=== PATIENT | male | born 1955 | race Caucasian/White ===

== ENCOUNTER → 2020-07-09 | Outpatient (CLI) | payer SELFPAY ==
[~2020-07-09] MED LIST: BARIUM SUSPENSION 2.1% (VANILLA SILQ) 450 ML PO ONE; CATHETER FLUSH 10 ML SYR IV PRN; HOLD METFORMIN - RECEIVED CONTRAST 20 ML VIAL IV SCH; IOHEXOL 350 MG/ML 100 ML (OMNIPAQUE 350) VIAL IV ONE; NS 100 ML (IVPB) BAG IV ONE
[2020-07-09 11:36] LABS: BUN/CREATININE RATIO 8; CREATININE SERUM 0.83 MG/DL (0.60-1.30); GFR ESTIMATED > 60
--- NOTE | 2020-07-09 12:25 | Diagnostic Imaging Report ---
PROCEDURE: CT abdomen and pelvis with contrast. TECHNIQUE: Multiple contiguous axial images were obtained through the abdomen and pelvis after administration of intravenous contrast. Auto Exposure Controls were utilized during the CT exam to meet ALARA standards for radiation dose reduction. All CT scans use one or more of the following dose optimizing techniques: automated exposure control, MA and/or KvP adjustment based on patient size and exam type or iterative reconstruction. INDICATION: Prostate carcinoma. No prior CT studies are available for comparison. FINDINGS: The lung bases are clear. No discrete liver mass is identified. There are small stones within the gallbladder. No biliary duct dilatation is seen. Pancreas and spleen are unremarkable. No adrenal mass is detected. Kidneys are unremarkable. Aorta is nonaneurysmal. Moderate atherosclerotic plaque throughout the aorta and iliac vessels is seen. No central retroperitoneal or mesenteric lymphadenopathy is identified. There is moderate amount of stool in the rectum and portions of the sigmoid colon and right colon. Small bowel is nondilated. No free fluid or fluid collection is identified. No definite iliac or inguinal lymphadenopathy is seen. Prostate appears to be surgically absent. Bladder is unremarkable. The bony structures are unremarkable. IMPRESSION: 1. Cholelithiasis. 2. Status post prostatectomy. No abdominal or pelvic lymphadenopathy or evidence of metastatic disease is identified. Dictated by: Dictated on workstation # [id number]
--- NOTE | 2020-07-09 14:09 | Diagnostic Imaging Report ---
INDICATION: Prostate carcinoma with increasing PSA levels. Patient was a administered 26.0 mCi technetium 99m MDP intravenously and whole-body imaging was performed after 3 hour delay. No prior bone scans are available for comparison. There is normal uptake of activity by the axial and appendicular skeleton. There is uptake by both kidneys with excretion into the urinary bladder. No suspicious foci are seen to suggest osseous metastatic disease. There is a focus in the right maxilla which could be odontogenic. IMPRESSION: No sonographic evidence of osseous metastatic disease. Dictated by: Dictated on workstation # [id number]
== END ==
LOC: CARD 10:28
PROVIDERS: ATTEND Urology
DX: K80.20 Calculus of gallbladder without cholecystitis without obstruction (principal); R97.20 Elevated prostate specific antigen [PSA]; Z85.46 Personal history of malignant neoplasm of prostate; Z90.79 Acquired absence of other genital organ(s)
CPT/HCPCS: 74177; 78306; 82565; 84520; A9503; 36415